=== PATIENT | male | born 1950 | race Caucasian/White ===

== ENCOUNTER → 2016-10-31 | Outpatient (REF) | payer OTHER ==
[~2016-10-31] MED LIST: ACET1TAB17 PO; ALB2.5NEB INH; ATOR1TAB21 PO; Amoxicillin/Clavulanate Potas PO; BACT800T5 PO; BIMA01SOL OU; CORE12.5 PO; CORE3.12 PO; DARB10SYRN SC; DOCU10CA PO; FERR1TAB8 PO; FERR325T3 PO; FIRS1SOL3 PO; IPRA2IN INH; LISI10TA4 PO; MULTTAB50 PO; NORV5TAB PO; PROBCAP4 PO; PROT1TAB2 PO; SIME80TA PO; TYLE325T5 PO; TYLE650T35 PO; VANC1CAP7 PO
== END ==
LOC: M SMT 12:59
PROVIDERS: ATTEND Nurse Practitioner Women's Health
DX: R31.29 Other microscopic hematuria (principal)

== ENCOUNTER → 2017-01-22 | Outpatient (CLI) | payer OTHER ==
--- NOTE | 2017-01-22 11:16 | REP ---
Chest two views HISTORY: Preop Comparison: 01/31/2014 Linear density is present in the left lower lobe consistent with scar. The right lung is clear. The heart is normal in size. The pulmonary vasculature is normal in appearance. The bony structure is intact. IMPRESSION: No acute disease. Signed by Modesto dOom MD 01/22/2017 11:07 A
[2017-01-22 14:19] LABS: MEAN CORPUSCULAR HEMOGLOBIN 28.4 pg (27.0-33.0); MEAN CORPUSCULAR HGB CONC 33.3 g/dl (32.0-36.5); MEAN CORPUSCULAR VOLUME 85.5 fl (80.0-96.0); RED CELL DISTRIBUTION WIDTH 12.9 % (11.5-14.5); WHITE BLOOD COUNT 7.7 10^3/uL (4.0-10.0)
[2017-01-22 14:29] LABS: INR 1.03
[2017-01-22 15:01] LABS: ANION GAP 2 MEQ/L (8-16); BLOOD UREA NITROGEN 19 MG/DL (7-18); CALCIUM LEVEL 9.2 MG/DL (8.8-10.2); CARBON DIOXIDE LEVEL 33 MEQ/L (21-32); CHLORIDE LEVEL 106 MEQ/L (98-107); CREATININE FOR GFR 0.95 MG/DL (0.70-1.30); GLOMERULAR FILTRATION RATE > 60.0 (>49); GLUCOSE, FASTING 82 MG/DL (80-110); POTASSIUM SERUM 5.1 MEQ/L (3.5-5.1); SODIUM LEVEL 141 MEQ/L (136-145)
== END ==
LOC: M WUC 10:17
PROVIDERS: ATTEND Nurse Practitioner Women's Health
DX: Z01.818 Encounter for other preprocedural examination (principal); N47.1 Phimosis

== ENCOUNTER 2020-08-10 19:25 | Emergency (ER) | payer MEDICARE, OTHER ==
[~2020-08-10] VITALS: Ht 170.2 cm; Wt 85.4 kg
[~2020-08-10 19:25] MED LIST changes: -ACET1TAB17 PO; +ACET1TAB55 PO; +ACET650T61 PO; -FIRS1SOL3 PO; +FIRS50SO PO; +LISI10TA22 PO; -LISI10TA4 PO; +SIME80CH5 PO; -SIME80TA PO; -TYLE650T35 PO
[2020-08-10] MEDS ORDERED: CARV6.25 PO (19:37)
[2020-08-10 20:27] LABS: BASO % 0.1 % (0.0-1.0); EOS # 0.4 10^3/uL (0.0-0.5); EOS % 5.9 % (0.0-3.0); HEMATOCRIT 50.1 % (42.0-52.0); HEMOGLOBIN 17.1 g/dl (13.5-17.5); LYMPH # 1.7 10^3/uL (1.5-5.0); LYMPH % 23.3 % (24.0-44.0); MEAN CORPUSCULAR HEMOGLOBIN 30.4 pg (27.0-33.0); MEAN CORPUSCULAR HGB CONC 34.1 g/dl (32.0-36.5); MEAN CORPUSCULAR VOLUME 89.1 fl (80.0-96.0); MONO # 0.4 10^3/uL (0.0-0.8); MONO % 5.9 % (2.0-8.0); NEUTROPHILS # 4.6 10^3/uL (1.5-8.5); NEUTROPHILS % 64.7 % (36.0-66.0); PLATELET COUNT, AUTOMATED 110 10^3/uL (150-450); RED BLOOD COUNT 5.62 10^6/uL (4.30-6.10); WHITE BLOOD COUNT 7.1 10^3/uL (4.0-10.0)
[2020-08-10 20:48] LABS: ALBUMIN 4.3 GM/DL (3.2-5.2); ALT/SGPT 45 U/L (12-78); BILIRUBIN,DIRECT 0.5 MG/DL (0.0-0.2); BILIRUBIN,TOTAL 3.5 MG/DL (0.2-1.0); CK-MB VALUE MASS < 1.0 NG/ML (<3.6); CPK CREATINE PHOSPHOKINASE 66 U/L (39-308); LIPASE 7238 U/L (73-393); MB/CK RELATIVE INDEX 1.52 (< OR =4); TOTAL PROTEIN 7.8 GM/DL (6.4-8.2); TROPONIN I < 0.02 NG/ML (< 0.10)
[2020-08-10] MEDS ORDERED: NS 1,000 ML IV ONE (21:05)
[2020-08-10] MEDS ORDERED: ISOVUE-370 76% 100ML VIAL As Ordered ONE (21:10)
--- NOTE | 2020-08-10 21:54 | REPVR ---
PROCEDURE INFORMATION: Exam: CT Abdomen And Pelvis With Contrast Exam date and time: 08/10/2020 9:24 PM Age: 69 years old Clinical indication: Abdominal pain; Localized; Right upper quadrant (ruq); Additional info: Epigastric, ruq pain, pancreatitis TECHNIQUE: Imaging protocol: Computed tomography of the abdomen and pelvis with contrast. Radiation optimization: All CT scans at this facility use at least one of these dose optimization techniques: automated exposure control; mA and/or kV adjustment per patient size (includes targeted exams where dose is matched to clinical indication); or iterative reconstruction. Contrast material: ISOVUE 370; Contrast volume: 100 ml; Contrast route: INTRAVENOUS (IV); COMPARISON: CT ABD PELVIS W/O CONTRAST 02/09/2014 10:55 AM FINDINGS: Lungs: Bibasilar atelectasis/scarring. Liver: Stable appearance of cyst in the hepatic dome measuring up to 2.5 cm. There is a diffuse decrease in hepatic parenchymal density, consistent with steatosis. Gallbladder and bile ducts: Cholelithiasis with mild thickening of the gallbladder wall. No pericholecystic fluid demonstrated. Clinical correlation to exclude cholecystitis suggested. Pancreas: Mild peripancreatic stranding and fluid extending into the anterior pararenal spaces, left greater than right. Findings consistent with mild pancreatitis. No pseudocyst or phlegmon demonstrated. Spleen: Normal. No splenomegaly. Adrenal glands: Normal. No mass. Kidneys and ureters: Simple exophytic cyst left kidney measures 2.3 cm. No follow-up suggested. Stomach and bowel: Inflammatory changes in the duodenal sweep may be reactive. Moderate diverticulosis is present in the distal colon. No diverticulitis. Appendix: No evidence of appendicitis. Intraperitoneal space: Unremarkable. No free air. No significant fluid collection. Vasculature: The aortoiliac vessels demonstrate mild atherosclerotic calcification. 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 Lymph nodes: Unremarkable. No enlarged lymph nodes. Urinary bladder: Unremarkable as visualized. Reproductive: The prostate gland demonstrates mild hyperplasia. Bones/joints: Mild central spinal stenosis L3-L4 and moderate central spinal stenosis L4-L5. Disc space narrowing L5-S1. Soft tissues: Right inguinal hernia without incarceration. IMPRESSION: 1. Stable appearance of cyst in the hepatic dome measuring up to 2.5 cm. 2. There is a diffuse decrease in hepatic parenchymal density, consistent with steatosis. 3. Cholelithiasis with mild thickening of the gallbladder wall. No pericholecystic fluid demonstrated. Clinical correlation to exclude cholecystitis suggested. 4. Mild peripancreatic stranding and fluid extending into the anterior pararenal spaces, left greater than right. Findings consistent with mild pancreatitis. No pseudocyst or phlegmon demonstrated. 5. Inflammatory changes in the duodenal sweep may be reactive. 6. Mild prostatic hyperplasia. 7. Moderate diverticulosis is present in the distal colon. No diverticulitis. COMMENTS: Consistent with the [employer] [place]'s Incidental Findings Committee white paper (J Am Barry Radiol 2018): Any incidental renal lesion less than 1 cm or classified as too small to characterize, or any incidental cystic renal lesion characterized as simple-appearing, is likely benign. No follow-up imaging is recommended for these lesions per consensus recommendations based on imaging criteria. Electronically signed by: Flako Dolan On 08/10/2020 21:54:09 PM
--- NOTE | 2020-08-10 21:57 | REPVR ---
PROCEDURE INFORMATION: Exam: US Abdomen, Limited; Right Upper Quadrant Exam date and time: 08/10/2020 9:48 PM Age: 69 years old Clinical indication: Abdominal tenderness; Additional info: Ruq pain, pancreatitis TECHNIQUE: Imaging protocol: US abdomen. Real time ultrasound with image documentation. Limited exam focused on the right upper quadrant. COMPARISON: CT ABD/PEL W/IV CONTRAST ONLY 08/10/2020 9:18 PM FINDINGS: Liver: Multiple simple hepatic cysts demonstrated in the right lobe. Largest target lesions measure 1.7 x 1.7 x 1.3 cm laterally and 3 x 3.1 x 2.2 cm medially. Gallbladder: There are gallstones present. No evidence of cholecystitis demonstrated. Negative sonographic Hernandez sign. Common bile duct: The common bile duct measures 3.7 mm. No mass or choledocholithiasis. Pancreas: Pancreas obscured by overlying bowel gas. Right kidney: Right kidney measures 11.3 x 5 x 5.2 cm. IMPRESSION: 1. There are gallstones present. No evidence of cholecystitis demonstrated. Negative sonographic Hernandez sign. 2. Hepatic simple cysts as described above. Electronically signed by: Flako Dolan On 08/10/2020 21:56:43 PM
[2020-08-10 23:00] VITALS: BP 156/87
--- NOTE | 2020-08-11 09:55 | ECGEPIP ---
[facility] - ED Test Date: 2020-08-10 Pat Name: SREEKANTH GORMAN Department: Room: - Gender: Male Weaver Hand: CORBY : 1950 Requested By: NEREYDA James Order Number: [id number] Reading MD: Yamilet Vargas Measurements Intervals [place] Rate: 65 P: 44 MI: 132 QRS: -39 QRSD: 84 T: 43 QT: 394 QTc: 409 Interpretive Statements Normal sinus rhythm Left axis deviation No prior Electronically Signed on 08-11-2020 9:55:02 EDT by Yamilet Vargas
== END 2020-08-10 23:30 | disposition home or self-care (01) ==
LOC: M ED 19:25
DX: K85.10 Biliary acute pancreatitis without necrosis or infection (principal); I10 Essential (primary) hypertension; N17.9 Acute kidney failure, unspecified; E78.5 Hyperlipidemia, unspecified; Z79.899 Other long term (current) drug therapy
CPT/HCPCS: 74177; 76705; 80047; 80076; 81001; 82550; 82553; 83690; 84484; 85025; 93005; 93041; 96360; 99284; Q9967

== ENCOUNTER 2020-08-15 08:21 | Inpatient (IN) | payer MEDICARE, OTHER ==
[~2020-08-15] VITALS: Ht 165.1 cm; Wt 81.9 kg
[~2020-08-15 08:21] MED LIST changes: +CARV6.25 PO
[2020-08-15] MEDS ORDERED: NS 1,000 ML IV SCH (09:30)
[2020-08-15] MEDS ORDERED: MORPHINE 2 MG/ML 1ML VIAL (J2270) IV PRN ×2 (09:30→12:20)
[2020-08-15] MEDS ORDERED: ONDANSETRON 4MG/2ML VIAL IV PRN ×2 (09:30→12:20)
[2020-08-15 09:55] LABS: BASO % 0.4 % (0.0-1.0); EOS # 0.1 10^3/uL (0.0-0.5); EOS % 0.9 % (0.0-3.0); HEMATOCRIT 53.7 % (42.0-52.0); HEMOGLOBIN 18.5 g/dl (13.5-17.5); LYMPH # 1.5 10^3/uL (1.5-5.0); LYMPH % 13.2 % (24.0-44.0); MEAN CORPUSCULAR HGB CONC 34.5 g/dl (32.0-36.5); MEAN CORPUSCULAR VOLUME 87.2 fl (80.0-96.0); MONO # 0.7 10^3/uL (0.0-0.8); MONO % 6.7 % (2.0-8.0); NEUTROPHILS # 8.7 10^3/uL (1.5-8.5); NEUTROPHILS % 78.1 % (36.0-66.0); PLATELET COUNT, AUTOMATED 115 10^3/uL (150-450); RED BLOOD COUNT 6.16 10^6/uL (4.30-6.10); WHITE BLOOD COUNT 11.1 10^3/uL (4.0-10.0)
[2020-08-15 10:03] LABS: ALBUMIN 4.3 GM/DL (3.2-5.2); ALT/SGPT 35 U/L (12-78); BILIRUBIN,TOTAL 4.1 MG/DL (0.2-1.0); BLOOD UREA NITROGEN 18 MG/DL (7-18); CALCIUM LEVEL 9.4 MG/DL (8.8-10.2); CARBON DIOXIDE LEVEL 27 MEQ/L (21-32); CHLORIDE LEVEL 108 MEQ/L (98-107); CREATININE FOR GFR 1.01 MG/DL (0.70-1.30); GLOMERULAR FILTRATION RATE > 60.0 (>42); GLUCOSE, FASTING 111 MG/DL (70-100); LIPASE 162 U/L (73-393); POTASSIUM SERUM 3.7 MEQ/L (3.5-5.1); SODIUM LEVEL 142 MEQ/L (136-145)
--- NOTE | 2020-08-15 10:23 | REP ---
INDICATION: ABD PAIN. COMPARISON: Comparison right upper quadrant sonography [address] study same date, 10 August 2020.. TECHNIQUE: Right upper quadrant sonography. FINDINGS: Scanning through the right upper quadrant the abdomen demonstrates multiple gallstones including large stones measuring up to 2.1 cm in diameter. No pericholecystic fluid is seen. No free ascites is observed. Common bile duct is normal measuring 0.6 cm in greatest diameter. There is are right lobe hepatic cyst measuring 2.5 and cm in diameter each. These correspond with CT findings and recent sonography and are unchanged. Pancreas is a largely obscured by abdominal gas. No intrapancreatic fluid collection or mass is seen. No other focal liver lesion is seen. No intrahepatic ductal dilation is observed. There is no evidence of right renal abnormality. Right kidney measures 10.8 x 5.1 x 5.5 cm. IMPRESSION: Cholelithiasis. Findings unchanged from comparison study August 10, 2020. Two right hepatic cysts.. <Electronically signed by Bernabe Will > 08/15/20 1022
[2020-08-15] MEDS ORDERED: D31000TA2 PO (10:44)
[2020-08-15] MEDS ORDERED: THERTAB21 PO (10:44)
[2020-08-15] MEDS ORDERED: CARVedilol 6.25 MG TAB PO ONE (11:00)
[2020-08-15 11:05] LABS: RSV AMPLIFICATION NEGATIVE (NEGATIVE)
[2020-08-15] MEDS ORDERED: ISOVUE-370 76% 100ML VIAL As Ordered ONE (11:12)
--- NOTE | 2020-08-15 11:48 | REP ---
INDICATION: abd pain COMPARISON: 08/10/2020. TECHNIQUE: CT Scan of the abdomen and pelvis was performed with intravenous administration of 100 cc of Isovue 370, without oral contrast. Sagittal and coronal reconstruction images are performed. FINDINGS: Lung bases: There are mild bibasilar fibro atelectatic changes. Liver: There are few cysts again seen at the dome of the liver. Gallbladder: Gallstones are seen in the gallbladder. Spleen: Normal. Adrenals: Normal. Pancreas: There is ill-defined low density in the superior aspect of the pancreatic head with adjacent ill-defined inflammatory density within the surrounding fat consistent with pancreatitis. The edema extends around the proximal duodenum and distal antrum of the stomach. Kidneys: There is an exophytic 2.3 cm cyst of the lower pole the left kidney. There is no hydronephrosis bilaterally. Small and large bowel: There is extensive sigmoid and left colonic diverticulosis without evidence of acute diverticulitis. Free fluid: None. Abdominal aorta: No aneurysm or dissection. Adenopathy: None. Appendix: Not inflamed. Osseous structures: There are degenerative changes of the spine without compression deformity.. Pelvis: No mass. There are very small inguinal hernias bilaterally containing noninflamed fat. IMPRESSION: Findings consistent with pancreatitis involving the head of the pancreas, with surrounding edema and inflammatory change. No free fluid, fluid collection or pseudocyst. Multiple gallstones are seen in the gallbladder without definite gallbladder wall thickening. No biliary dilatation. <Electronically signed by Darci Pak > 08/15/20 1207
[2020-08-15] MEDS ORDERED: NORCO, ANEXSIA 5/325MG TABLET (HYDROcodone/ACETAMINOPHEN) PO PRN ×2 (13:50)
[2020-08-15] MEDS: LR 1,000 ML IV SCH ×2 (13:50→17:15)
[2020-08-15] MEDS: PANTOPRAZOLE 40MG VIAL (C9113 PER 1) IV SCH (13:50)
--- NOTE | 2020-08-15 14:19 | HPEPDOC ---
General Date of Admission August 15, 2020 at 12:46 Date of Service: August 15, 2020 Chief Complaint The patient is a 69-year-old male admitted with a reason for visit of Acute Pancreatitis. Source: Patient, RN/MD History of Present Illness 69-year-old male with a history of hypertension and hyperlipidemia and occasional alcohol use is presented initially to emergency room on 08/10 for periumbilical abdominal pain which started after breakfast. At that time he was diagnosed with themRamón Question pancreatitis and was discharged home with pain medications to follow up with Dr. Lopez however, he comes back today as he has been unable to tolerate any solid food. He says he has been able to drink only small amounts of liquids only, as soon as he would drink liquids he would start having periumbilical pain which would be as high as 8 / 10 in intensity, crampy, sharp in nature, going to the back and towards his shoulder. He also complains of nausea but no vomiting. He has not had any bowel movement since the . In the ED CT scan showed acute pancreatitis, labs were suggestive of dehydration, and telemetry. An EKG shows some atrial fibrillation which is new with a rate initially 120s to 130s, but then after some hydration, it settled down to about 100 110. . He is admitted for acute pancreatitis, dehydration and A. 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 paternal grandmother had DM Social History * Smoker: non-smoker Alcohol: occationally (2 whiskeys on friday adn saturdays) Drugs: denies A-FIB/CHADSVASC A-FIB History Current/History of A-Fib/PAF?: No Review of Systems Constitutional: Denies: Chills, Fever, Night Sweats Eyes: Denies: Pain, Vision change ENT: Denies: Head Aches, Ear Pain, Dysphagia Skin: Denies: Rash, Lesions, Breakdown Pulmonary: Denies: Dyspnea, Cough Cardiovascular: Denies: Chest Pain, Palpitations, Orthopnea, Paroxysmal Noc. Dyspnea, Lt Headedness Gastrointestinal: Reports: Nausea, Abdominal Pain, Constipation Genitourinary: Denies: Dysuria, Frequency, Incontinence, Retention Hematologic: Denies: Bruising, Bleeding Excessively Physical Examination General Exam: Positive: Alert, Cooperative, No Acute Distress Eye Exam: Positive: PERRLA, Conjunctiva & lids normal, EOMI; Negative: Sclera icteric ENT Exam: Positive: Atraumatic, Mucous membr. moist/pink, Pharynx Normal Neck Exam: Positive: Supple; Negative: JVD, thyromegaly Chest Exam: Positive: Clear to auscultation, Normal air movement Heart Exam: Positive: Tachycardic, Irregular Rhythm, Normal S1, Normal S2; Negative: Murmurs, Rubs Telemetry: Positive: Atrial fibrillation Abdomen Exam: Positive: BS Hyperactive, Soft, Tenderness (periumbilical area), Other (N guarding or regidity or rebound); Negative: Hepatospenomegaly Extremity Exam: Negative: Clubbing, Cyanosis, Edema Skin Exam: Positive: Nl turgor and temperature; Negative: Breakdown, Lesion Neuro Exam: Positive: Normal Speech, Strength at 5/5 X4 ext, Normal Tone Psych Exam: Positive: Memory Intact, Oriented x 3 Vital Signs Vital Signs Date Time Temp Pulse Resp B/P (MAP) Pulse Ox O2 Delivery O2 Flow Rate FiO2 08/15/20 10:26 17 98 08/15/20 10:16 Room Air 08/15/20 09:15 127 122/97 (105) 08/15/20 08:30 95.5 Laboratory Data Labs 24H Laboratory Tests 2 08/15/20 09:14: Immature Granulocyte % (Auto) 0.7, Neutrophils (%) (Auto) 78.1H, Lymphocytes (%) (Auto) 13.2L, Monocytes (%) (Auto) 6.7, Eosinophils (%) (Auto) 0.9, Basophils (%) (Auto) 0.4, Neutrophils # (Auto) 8.7H, Lymphocytes # (Auto) 1.5, Monocytes # (Auto) 0.7, Eosinophils # (Auto) 0.1, Basophils # (Auto) 0.0, Nucleated Red Blood Cells % (auto) 0.0 08/15/20 09:16: POC Troponin I (Misc) 0.02 08/15/20 09:38: Anion Gap 7L, Glomerular Filtration Rate > 60.0, Calcium Level 9.4, Total Bilirubin 4.1H, Aspartate Amino Transf (AST/SGOT) 26, Alanine Aminotransferase (ALT/SGPT) 35, Alkaline Phosphatase 71, Total Protein 8.0, Albumin 4.3, Albumin/Globulin Ratio 1.2, Lipase 162 08/15/20 10:10: Coronavirus (COVID-19)(PCR) NEGATIVE, Influenza Type A (RT-PCR) NEGATIVE, Influenza Type B (RT-PCR) NEGATIVE, Respiratory Syncytial Virus (PCR) NEGATIVE CBC/BMP Laboratory Tests 08/15/20 09:14 08/15/20 09:38 Assessment/Plan 69-year-old male with a history of hypertension and hyperlipidemia and occa sional alcohol use is presented initially to emergency room on 08/10 for periumbilical abdominal pain which started after breakfast. At that time he was diagnosed with them. Question pancreatitis and was discharged home with pain medications to follow up with Dr. Lopez however, he comes back today as he has been unable to tolerate any solid food. He says he has been able to drink only small amounts of liquids only, as soon as he would drink liquids he would start having periumbilical pain which would be as high as 8 / 10 in intensity, crampy, sharp in nature, going to the back and towards his shoulder. He also complains of nausea but no vomiting. He has not had any bowel movement since the . In the ED CT scan showed acute pancreatitis, labs were suggestive of dehydration, and telemetry. An EKG shows some atrial fibrillation which is new with a rate initially 120s to 130s, but then after some hydration, it settled down to about 100 110. . He is admitted for acute pancreatitis, dehydration and A. fib with RVR Acute pancreatitis Though he has some alcohol intake history, but not significant amount and he does have lots of gallstones in the gallbladder, so this is likely gallstone related acute pancreatitis IV fluids, Zofran and pain control with the [place] and morphine Clear liquids. Will advance to full liquids if tolerated Dehydration Suggested by high H&H Continue with IV fluids A. fib with RVR No history of A. fib before, likely precipitated by the pain and acute pa ncreatitis Continue Coreg and increase dose as needed Will discuss about starting anticoagulation on discharge Hypertension Continue Coreg Hyperlipidemia Hold statin for now Plan / VTE VTE Prophylaxis Ordered?: Yes CAROL VO MD August 15, 2020 14:19
[2020-08-15 17:08] VITALS: BP 147/88
--- NOTE | 2020-08-15 17:52 | ECGEPIP ---
[facility] - ED Test Date: 2020-08-15 Pat Name: SREEKANTH GORMAN Department: Room: - Gender: Male Dope Mixer: : 1950 Requested By: Yamilet Vargas Order Number: [id number] Reading MD: Yamilet Vargas Measurements Intervals [place] Rate: 166 P: [place]: QRS: -39 QRSD: 78 T: -84 QT: 296 QTc: 491 Interpretive Statements Atrial flutter Left axis deviation Minimal voltage criteria for LVH, may be normal variant ( Alirio product ) Marked ST abnormality, possible anterolateral subendocardial injury 08/10/20 sinus rhythm Electronically Signed on 08-15-2020 17:51:51 EDT by Yamilet Vargas
[2020-08-15 20:35] VITALS: BP 164/89
[2020-08-15] MEDS: CARVedilol 6.25 MG TAB PO SCH (20:44)
[2020-08-16] MEDS: LR 1,000 ML IV SCH ×4 (00:14→15:31)
[2020-08-16 06:00] VITALS: BP 158/88
[2020-08-16 06:49] LABS: BASO % 0.4 % (0.0-1.0); EOS # 0.2 10^3/uL (0.0-0.5); EOS % 2.7 % (0.0-3.0); HEMATOCRIT 44.5 % (42.0-52.0); LYMPH # 1.5 10^3/uL (1.5-5.0); LYMPH % 17.7 % (24.0-44.0); MEAN CORPUSCULAR HEMOGLOBIN 30.6 pg (27.0-33.0); MEAN CORPUSCULAR HGB CONC 34.6 g/dl (32.0-36.5); MEAN CORPUSCULAR VOLUME 88.5 fl (80.0-96.0); MONO # 0.5 10^3/uL (0.0-0.8); MONO % 6.6 % (2.0-8.0); NEUTROPHILS # 5.9 10^3/uL (1.5-8.5); RED BLOOD COUNT 5.03 10^6/uL (4.30-6.10); WHITE BLOOD COUNT 8.2 10^3/uL (4.0-10.0)
[2020-08-16 06:53] LABS: HEMOGLOBIN 15.4 g/dl (13.5-17.5); PLATELET COUNT, AUTOMATED 96 10^3/uL (150-450)
[2020-08-16 07:00] LABS: BLOOD UREA NITROGEN 15 MG/DL (7-18); CALCIUM LEVEL 8.7 MG/DL (8.8-10.2); CARBON DIOXIDE LEVEL 27 MEQ/L (21-32); CHLORIDE LEVEL 110 MEQ/L (98-107); GLOMERULAR FILTRATION RATE > 60.0 (>42); GLUCOSE, FASTING 93 MG/DL (70-100); POTASSIUM SERUM 3.8 MEQ/L (3.5-5.1); SODIUM LEVEL 141 MEQ/L (136-145)
[2020-08-16 08:21] LABS: ALBUMIN 3.1 GM/DL (3.2-5.2); ALT/SGPT 25 U/L (12-78); BILIRUBIN,DIRECT 0.5 MG/DL (0.0-0.2); BILIRUBIN,TOTAL 3.7 MG/DL (0.2-1.0); TOTAL PROTEIN 6.1 GM/DL (6.4-8.2)
[2020-08-16] MEDS ORDERED: ENOXAPARIN 40MG/0.4ML SYRINGE (J1650 PER 10MG) SC SCH (09:00)
[2020-08-16 09:53] VITALS: BP 151/85
[2020-08-16] MEDS: CARVedilol 6.25 MG TAB PO SCH (09:53)
[2020-08-16] MEDS: PANTOPRAZOLE 40MG VIAL (C9113 PER 1) IV SCH (13:39)
[2020-08-16 14:00] VITALS: BP 153/86
[2020-08-16] MEDS ORDERED: HYDR-3715 PO (16:12)
--- NOTE | 2020-08-16 17:48 | DS.PDOC ---
Discharge Summary General Date of Admission August 15, 2020 at 12:46 Date of Discharge 08/16/20 Discharge Summary PROCEDURES PERFORMED DURING STAY: [None]. DISCHARGE DIAGNOSES: Acute Gall stone pancreatitis. COMPLICATIONS/CHIEF COMPLAINT: Acute Pancreatitis. HOSPITAL COURSE: 69-year-old male with a history of hypertension and hyperlipidemia and occasional alcohol use is presented initially to emergency room on 08/10 for periumbilical abdominal pain which started after breakfast. At that time he was diagnosed with them. Question pancreatitis and was discharged home with pain medications to follow up with Dr. Lopez however, he comes back today as he has been unable to tolerate any solid food. He says he has been able to drink only small amounts of liquids only, as soon as he would drink liquids he would start having periumbilical pain which would be as high as 8 / 10 in intensity, crampy, sharp in nature, going to the back and towards his shoulder. He also complains of nausea but no vomiting. He has not had any bowel movement since the . In the ED CT scan showed acute pancreatitis, labs were suggestive of dehydration, and telemetry. An EKG shows some atrial fibrillation which is new with a rate initially 120s to 130s, but then after some hydration, it settled down to about 100 110. He is admitted for acute pancreatitis, dehydration and A. fib with RVR. Acute pancreatitis Though he has some alcohol intake history, but not significant amount and he does have lots of gallstones in the gallbladder, so this is likely gallstone related acute pancreatitis tolerated soft diet, low fat and low cholesterol. did not need any pain medication in 24 hours. patient to be discharged home to follow up with Dr Lopez Dehydration Suggested by high H&H now hydrated A. fib/ a flutter with RVR No history of A. fib before, likely precipitated by the pain and acute pancreatitis spontaneously corrected to sinus in about 4 hours. Continue Coreg . His CHADVASC2 score is 2.0 Patient may need early surgery so will hold off on initiating AC at present will defer to PMD for decision about anticoagulation Will also need an echo as an outpatient. Hypertension Continue Coreg Hyperlipidemia statin DISCHARGE MEDICATIONS: Please see below. ALLERGIES: Please see below. PHYSICAL EXAMINATION ON DISCHARGE: VITAL SIGNS: Please see below. General Exam: Positive: Alert, Cooperative, No Acute Distress Eye Exam: Positive: PERRLA, Conjunctiva & lids normal, EOMI; Negative: Sclera icteric ENT Exam: Positive: Atraumatic, Mucous membr. moist/pink, Pharynx Normal Neck Exam: Positive: Supple; Negative: JVD, thyromegaly Chest Exam: Positive: Clear to auscultation, Normal air movement Heart Exam: Positive: Normal rate, regular rhythm, Normal S1, Normal S2; Negative: Murmurs, Rubs Abdomen Exam: Positive: BS normal, Soft, Nontender Negative: Hepatosplenomegaly Extremity Exam: Negative: Clubbing, Cyanosis, Edema Skin Exam: Positive: Nl turgor and temperature; Negative: Breakdown, Lesion Neuro Exam: Positive: Normal Speech, Strength at 5/5 X4 ext, Normal Tone Psych Exam: Positive: Memory Intact, Oriented x 3 LABORATORY DATA: Please see below. ACTIVITY: [As tolerated]. DIET: Low fat and low cholesterol soft diet. DISPOSITION: 01 Home, Self-Care. DISCHARGE INSTRUCTIONS: Follow up with Dr Lopez on 08/17/20 Follow up with PMD in 2 weeks DISCHARGE CONDITION: [Stable]. TIME SPENT ON DISCHARGE: 35 minutes. Vital Signs/I&Os Vital Signs Date Time Temp Pulse Resp B/P (MAP) Pulse Ox O2 Delivery O2 Flow Rate FiO2 08/16/20 14:00 97.8 64 18 153/86 (108) 96 Room Air I&O- Last 24 Hours up to 6 AM 08/16/20 07:00 Intake Total 3270 ml Output Total 575 ml Balance 2695 ml Laboratory Data Labs 24H Laboratory Tests 2 08/16/20 06:17: Immature Granulocyte % (Auto) 0.6, Neutrophils (%) (Auto) 72.0H, Lymphocytes (%) (Auto) 17.7L, Monocytes (%) (Auto) 6.6, Eosinophils (%) (Auto) 2.7, Basophils (%) (Auto) 0.4, Neutrophils # (Auto) 5.9, Lymphocytes # (Auto) 1.5, Monocytes # (Auto) 0.5, Eosinophils # (Auto) 0.2, Basophils # (Auto) 0.0, Nucleated Red Blood Cells % (auto) 0.0, Immature Platelet Fraction 5.5, Anion Gap 4L, Glomer ular Filtration Rate > 60.0, Calcium Level 8.7L, Total Bilirubin 3.7H, Direct Bilirubin 0.5H, Aspartate Amino Transf (AST/SGOT) 19, Alanine Aminotransferase (ALT/SGPT) 25, Alkaline Phosphatase 48, Total Protein 6.1#L, Albumin 3.1#L, Albumin/Globulin Ratio 1.0 08/16/20 12:06: Lab Scanned Report Miscellaneous Lab CBC/BMP Laboratory Tests 08/16/20 06:17 Discharge Medications Scheduled Atorvastatin Calcium (Atorvastatin Calcium) 20 Mg Tab, 20 MG PO DAILY, (Reported) Carvedilol (Carvedilol) 6.25 Mg Tablet, 6.25 MG PO BID, (Reported) Cholecalciferol (Vitamin D3) (Vitamin D3) 1,000 Unit Tablet, 1,000 UNITS PO Q2D, (Reported) Multivit,Calc,Mins/Iron/Folic (Thera-M Tablet) 1 Each Tablet, 1 TAB PO Q2D, (Reported) Scheduled PRN Hydrocodone/Acetaminophen (Hydrocodone-Acetamin 5-325 mg) 1 Each Tablet, 1 TAB PO Q8HP PRN for PAIN Allergies Coded Allergies: No Known Allergies (Unverified , 02/05/17) CAROL VO MD August 16, 2020 17:48
== END 2020-08-16 17:18 | disposition home or self-care (01) | DRG 439 ==
LOC: M ED 08:21 → M ED INP 12:46 → M MSPAV 20:31
PROVIDERS: ADMIT Internal Medicine Nephrology; ATTEND Internal Medicine Nephrology
DX: K85.10 Biliary acute pancreatitis without necrosis or infection (principal); I48.92 Unspecified atrial flutter; I48.91 Unspecified atrial fibrillation; I10 Essential (primary) hypertension; E78.5 Hyperlipidemia, unspecified; E86.0 Dehydration; Z79.899 Other long term (current) drug therapy; Z98.41 Cataract extraction status, right eye; Z98.42 Cataract extraction status, left eye

== ENCOUNTER → 2021-04-04 | Outpatient (CLI) | payer MEDICARE, OTHER ==
[~2021-04-04] MED LIST changes: +D31000TA2 PO; +HYDR-3715 PO; +THERTAB21 PO
== END ==
LOC: M LABSMTC 10:34
PROVIDERS: ATTEND Anesthesiology
DX: Z01.812 Encounter for preprocedural laboratory examination (principal); Z20.822 Contact with and (suspected) exposure to COVID-19

== ENCOUNTER 2021-04-09 10:59 | Day surgery (SDC) | payer MEDICARE, OTHER ==
[~2021-04-09] VITALS: Ht 170.2 cm; Wt 83.0 kg
[~2021-04-09 10:59] MED LIST changes: +CYCLOPENTOLATE 1% OPHTH SOLN 2 ML BTL OS SCH; +FLURBIPROFEN 0.03% OPHTH SOLN 2.5 ML OS SCH; +LIDOCAINE 1% SDV 5ML VIAL As Ordered ONE; +LR 1,000 ML IV SCH; +PHENYLEPHRINE 2.5% OPHTH SOL 2ML OS SCH; +TETRACAINE 0.5% OPHTH SOLN 4ML OS SCH
[2021-04-09] MEDS ORDERED: MIDAZOLAM INJ 2MG/2ML VIAL (J2250 PER 1MG) As Ordered ONE (14:01)
[2021-04-09] MEDS ORDERED: fentaNYL 100 MCG/2 ML INJECTION As Ordered ONE (14:01)
[2021-04-09 14:40] VITALS: BP 160/97
[2021-06-04] MEDS ORDERED: CARV6.25 PO (13:30)
== END 2021-04-09 14:50 | disposition home or self-care (01) ==
LOC: M SDC 10:59
PROVIDERS: ATTEND Ophthalmology
DX: H25.12 Age-related nuclear cataract, left eye (principal); I10 Essential (primary) hypertension; E78.5 Hyperlipidemia, unspecified; Z79.899 Other long term (current) drug therapy
CPT/HCPCS: 66984; J2250; J3010; V2632

== ENCOUNTER 2021-04-27 02:01 | Inpatient (IN) | payer MEDICARE, OTHER ==
[~2021-04-27] VITALS: Ht 167.6 cm; Wt 82.5 kg
[~2021-04-27 02:01] MED LIST changes: -CYCLOPENTOLATE 1% OPHTH SOLN 2 ML BTL OS SCH; -FLURBIPROFEN 0.03% OPHTH SOLN 2.5 ML OS SCH; -LIDOCAINE 1% SDV 5ML VIAL As Ordered ONE; -LR 1,000 ML IV SCH; -PHENYLEPHRINE 2.5% OPHTH SOL 2ML OS SCH; -TETRACAINE 0.5% OPHTH SOLN 4ML OS SCH
[2021-04-27 06:40] LABS: BASO # 0.1 10^3/uL (0.0-0.2); BASO % 0.6 % (0.0-1.0); HEMOGLOBIN 19.9 g/dl (13.5-17.5); LYMPH # 1.3 10^3/uL (1.5-5.0); LYMPH % 5.5 % (24.0-44.0); MEAN CORPUSCULAR HGB CONC 34.4 g/dl (32.0-36.5); MONO # 1.2 10^3/uL (0.0-0.8); MONO % 4.9 % (2.0-8.0); NEUTROPHILS # 20.1 10^3/uL (1.5-8.5); NEUTROPHILS % 86.4 % (36.0-66.0); PLATELET COUNT, AUTOMATED 131 10^3/uL (150-450); RED BLOOD COUNT 6.64 10^6/uL (4.30-6.10); WHITE BLOOD COUNT 23.3 10^3/uL (4.0-10.0)
[2021-04-27 06:41] LABS: HEMATOCRIT 57.8 % (42.0-52.0)
[2021-04-27] MEDS ORDERED: NS 1,000 ML IV ONE (06:45)
[2021-04-27] MEDS ORDERED: MORPHINE 4 MG/ML 1ML VIAL/SYRINGE (J2270) IV ONE (06:55)
[2021-04-27] MEDS ORDERED: PIPERACILLIN/TAZOBACTAM SOD 3.375 GM in D5W MINI-BAG PLUS 50 ML IV ONE (06:55)
[2021-04-27 07:01] LABS: ALBUMIN 4.7 GM/DL (3.2-5.2); BILIRUBIN,DIRECT 0.6 MG/DL (0.0-0.2); BILIRUBIN,TOTAL 4.8 MG/DL (0.2-1.0); CALCIUM LEVEL 9.9 MG/DL (8.8-10.2); CREATININE FOR GFR 2.01 MG/DL (0.70-1.30); POTASSIUM SERUM 3.8 MEQ/L (3.5-5.1); TOTAL PROTEIN 8.5 GM/DL (6.4-8.2)
[2021-04-27] MEDS ORDERED: NS 2,590 ML in IV 1 EA IV ONE (07:05)
[2021-04-27] MEDS ORDERED: MORPHINE 2 MG/ML 1ML VIAL (J2270) IV ONE (08:15)
[2021-04-27] MEDS ORDERED: PREDOPD OS (08:44)
[2021-04-27] MEDS ORDERED: TIMO0.5S29 OS (08:44)
[2021-04-27] MEDS ORDERED: HOME MED LIST COMPLETE! XX SCH (08:45)
[2021-04-27] MEDS ORDERED: MORPHINE 2 MG/ML 1ML VIAL (J2270) IV PRN ×2 (10:45→12:40)
[2021-04-27] MEDS ORDERED: HYDROMORPHONE HCL 0.5 MG/ 0.5 ML SYRINGE (J1170 PER 1) IV PRN (11:10)
[2021-04-27] MEDS ORDERED: CARVedilol 6.25 MG TAB PO SCH ×2 (11:45→21:00)
[2021-04-27] MEDS: ATORVASTATIN 20 MG TAB PO SCH (12:27)
[2021-04-27] MEDS: NS 1,000 ML IV SCH ×2 (12:27→17:59)
[2021-04-27] MEDS: prednisoLONE ACET 1% OPHTH SUSP 5ML OS SCH ×3 (13:00→21:00)
[2021-04-27] MEDS ORDERED: ACETAMINOPHEN TAB 650MG DOSE (2X325MG) PO PRN (15:15)
[2021-04-27] MEDS: PIPERACILLIN/TAZOBACTAM SOD 3.375 GM in D5W MINI-BAG PLUS 50 ML IV SCH ×2 (17:58→20:59)
[2021-04-27] MEDS ORDERED: METOPROLOL 5 MG/5 ML VIAL As Ordered ONE (18:24)
[2021-04-27] MEDS ORDERED: METOPROLOL 5 MG/5 ML VIAL IV STA (18:32)
[2021-04-27 19:06] VITALS: BP 139/84
[2021-04-27] MEDS ORDERED: atenoloL 25 MG TAB PO ONE (19:20)
[2021-04-27] MEDS ORDERED: METOPROLOL 5 MG/5 ML VIAL IV PRN (19:20)
[2021-04-27] MEDS: TIMOLOL MALEATE 0.5% OPHTH SOLN 5 ML OS SCH (21:00)
[2021-04-27] MEDS: HEPARIN SOD (PORCINE) 5000UNITS/ML 1ML VIAL/SYRINGE SC SCH (21:13)
[2021-04-27 21:17] VITALS: BP 114/71
[2021-04-28] VITALS (14 sets, daily range): BP systolic 111–144; BP diastolic 68–75; O2SAT 93–97
[2021-04-28] MEDS: HYDROMORPHONE HCL 0.5 MG/ 0.5 ML SYRINGE (J1170 PER 1) IV PRN ×3 (00:25→16:59)
[2021-04-28] MEDS: NS 1,000 ML IV SCH ×2 (00:27→07:15)
[2021-04-28] MEDS: PIPERACILLIN/TAZOBACTAM SOD 3.375 GM in D5W MINI-BAG PLUS 50 ML IV SCH (03:00)
[2021-04-28] MEDS: HEPARIN SOD (PORCINE) 5000UNITS/ML 1ML VIAL/SYRINGE SC SCH ×3 (05:46→21:33)
[2021-04-28 06:22] LABS: BASO # 0.1 10^3/uL (0.0-0.2); BASO % 0.3 % (0.0-1.0); EOS # 0.1 10^3/uL (0.0-0.5); EOS % 0.2 % (0.0-3.0); HEMATOCRIT 51.4 % (42.0-52.0); LYMPH # 1.2 10^3/uL (1.5-5.0); MEAN CORPUSCULAR HEMOGLOBIN 30.2 pg (27.0-33.0); MEAN CORPUSCULAR HGB CONC 33.5 g/dl (32.0-36.5); MEAN CORPUSCULAR VOLUME 90.2 fl (80.0-96.0); MONO % 7.1 % (2.0-8.0); NEUTROPHILS % 86.4 % (36.0-66.0); WHITE BLOOD COUNT 24.3 10^3/uL (4.0-10.0)
[2021-04-28 06:52] LABS: ALBUMIN 3.1 GM/DL (3.2-5.2); ALT/SGPT 39 U/L (12-78); BILIRUBIN,TOTAL 5.6 MG/DL (0.2-1.0); BLOOD UREA NITROGEN 42 MG/DL (7-18); CALCIUM LEVEL 8.2 MG/DL (8.8-10.2); CARBON DIOXIDE LEVEL 22 MEQ/L (21-32); CHLORIDE LEVEL 119 MEQ/L (98-107); CREATININE FOR GFR 1.25 MG/DL (0.70-1.30); GLOMERULAR FILTRATION RATE > 60.0 (>42); GLUCOSE, FASTING 133 MG/DL (70-100); MAGNESIUM LEVEL 2.1 MG/DL (1.8-2.4); PHOSPHORUS LEVEL 3.3 MG/DL (2.5-4.9); POTASSIUM SERUM 4.2 MEQ/L (3.5-5.1); SODIUM LEVEL 150 MEQ/L (136-145); TOTAL PROTEIN 6.5 GM/DL (6.4-8.2)
[2021-04-28 07:16] LABS: HEMOGLOBIN 17.2 g/dl (13.5-17.5); MONO # 1.7 10^3/uL (0.0-0.8); PLATELET COUNT, AUTOMATED 99 10^3/uL (150-450)
[2021-04-28] MEDS: prednisoLONE ACET 1% OPHTH SUSP 5ML OS SCH ×4 (09:00→20:50)
[2021-04-28] MEDS: TIMOLOL MALEATE 0.5% OPHTH SOLN 5 ML OS SCH ×2 (09:00→20:50)
[2021-04-28] MEDS: ATORVASTATIN 20 MG TAB PO SCH (09:17)
[2021-04-28] MEDS: atenoloL 25 MG TAB PO SCH (09:17)
[2021-04-28] MEDS: CIPROFLOXACIN 400 MG in IV 1 EA IV SCH ×2 (09:17→20:50)
[2021-04-28] MEDS ORDERED: MORPHINE 2 MG/ML 1ML VIAL (J2270) IV PRN (10:00)
[2021-04-28] MEDS: metroNIDAZOLE 500 MG in IV 1 EA IV SCH ×2 (10:50→17:05)
[2021-04-28 17:12] LABS: ALBUMIN 2.8 GM/DL (3.2-5.2); ALT/SGPT 34 U/L (12-78); BILIRUBIN,TOTAL 4.2 MG/DL (0.2-1.0); BLOOD UREA NITROGEN 40 MG/DL (7-18); CALCIUM LEVEL 8.1 MG/DL (8.8-10.2); CARBON DIOXIDE LEVEL 21 MEQ/L (21-32); CHLORIDE LEVEL 119 MEQ/L (98-107); CREATININE FOR GFR 1.13 MG/DL (0.70-1.30); GLOMERULAR FILTRATION RATE > 60.0 (>42); GLUCOSE, FASTING 118 MG/DL (70-100); SODIUM LEVEL 149 MEQ/L (136-145); TOTAL PROTEIN 6.2 GM/DL (6.4-8.2)
[2021-04-28] MEDS: D5W 1,000 ML IV SCH (17:28)
[2021-04-29] VITALS: BP 152/74
[2021-04-29] MEDS: metroNIDAZOLE 500 MG in IV 1 EA IV SCH ×2 (03:00→10:00)
[2021-04-29] MEDS: D5W 1,000 ML IV SCH (03:15)
[2021-04-29 04:00] VITALS: BP 139/76
[2021-04-29 06:21] LABS: BASO # 0.1 10^3/uL (0.0-0.2); BASO % 0.3 % (0.0-1.0); EOS % 0.1 % (0.0-3.0); HEMATOCRIT 44.1 % (42.0-52.0); LYMPH # 0.8 10^3/uL (1.5-5.0); LYMPH % 4.6 % (24.0-44.0); MEAN CORPUSCULAR HEMOGLOBIN 30.2 pg (27.0-33.0); MEAN CORPUSCULAR HGB CONC 33.8 g/dl (32.0-36.5); MEAN CORPUSCULAR VOLUME 89.5 fl (80.0-96.0); MONO # 1.3 10^3/uL (0.0-0.8); MONO % 7.4 % (2.0-8.0); NEUTROPHILS # 14.2 10^3/uL (1.5-8.5); NEUTROPHILS % 83.6 % (36.0-66.0); RED BLOOD COUNT 4.93 10^6/uL (4.30-6.10)
[2021-04-29 06:22] LABS: HEMOGLOBIN 14.9 g/dl (13.5-17.5); PLATELET COUNT, AUTOMATED 78 10^3/uL (150-450)
[2021-04-29] MEDS: HEPARIN SOD (PORCINE) 5000UNITS/ML 1ML VIAL/SYRINGE SC SCH (06:41)
[2021-04-29 06:58] LABS: ALBUMIN 2.5 GM/DL (3.2-5.2); ALT/SGPT 32 U/L (12-78); BILIRUBIN,TOTAL 3.2 MG/DL (0.2-1.0); BLOOD UREA NITROGEN 28 MG/DL (7-18); CARBON DIOXIDE LEVEL 23 MEQ/L (21-32); CHLORIDE LEVEL 116 MEQ/L (98-107); CREATININE FOR GFR 1.09 MG/DL (0.70-1.30); GLOMERULAR FILTRATION RATE > 60.0 (>42); GLUCOSE, FASTING 106 MG/DL (70-100); MAGNESIUM LEVEL 2.3 MG/DL (1.8-2.4); PHOSPHORUS LEVEL 1.4 MG/DL (2.5-4.9); POTASSIUM SERUM 4.7 MEQ/L (3.5-5.1); SODIUM LEVEL 145 MEQ/L (136-145); TOTAL PROTEIN 5.7 GM/DL (6.4-8.2)
[2021-04-29 08:00] VITALS: BP 145/69
[2021-04-29 08:30] VITALS: BP 139/76
[2021-04-29] MEDS: TIMOLOL MALEATE 0.5% OPHTH SOLN 5 ML OS SCH (08:30)
[2021-04-29] MEDS: CIPROFLOXACIN 400 MG in IV 1 EA IV SCH (08:30)
[2021-04-29] MEDS: prednisoLONE ACET 1% OPHTH SUSP 5ML OS SCH (08:30)
[2021-04-29] MEDS: ATORVASTATIN 20 MG TAB PO SCH (08:30)
[2021-04-29] MEDS: atenoloL 25 MG TAB PO SCH (08:30)
[2021-04-29] MEDS ORDERED: K-PHOS ORIGINAL (POT.ACID PHOSPHATE) 500MG TAB PO ONE (08:50)
[2021-04-29] MEDS ORDERED: CIPR500T39 PO (10:28)
[2021-04-29] MEDS ORDERED: METR-265 PO (10:28)
[2021-04-29] MEDS ORDERED: ELIQ5TAB PO (10:28)
[2021-04-29] MEDS ORDERED: ATEN25TA PO (10:34)
== END 2021-04-29 13:18 | disposition home or self-care (01) | DRG 445 ==
LOC: M ED 02:01 → M ED INP 11:10 → ENRESERV 16:30 → M PCU 19:09
PROVIDERS: ADMIT Internal Medicine; ATTEND Internal Medicine
DX: K81.0 Acute cholecystitis (principal); N17.9 Acute kidney failure, unspecified; I48.92 Unspecified atrial flutter; I10 Essential (primary) hypertension; E78.5 Hyperlipidemia, unspecified; R74.01 Elevation of levels of liver transaminase levels; Z20.822 Contact with and (suspected) exposure to COVID-19; Z79.899 Other long term (current) drug therapy; Z98.49 Cataract extraction status, unspecified eye

== ENCOUNTER → 2021-06-13 | Outpatient (CLI) | payer MEDICARE, OTHER ==
[~2021-06-13] MED LIST changes: +ATEN25TA PO; +CIPR500T39 PO; -D31000TA2 PO; +ELIQ5TAB PO; +METR-265 PO; +PREDOPD OS; +TIMO0.5S29 OS; +VITA100093 PO
== END ==
LOC: M LABSMTC 09:38
PROVIDERS: ATTEND Anesthesiology
DX: Z01.818 Encounter for other preprocedural examination (principal); Z11.52 Encounter for screening for COVID-19

== ENCOUNTER 2022-02-01 08:07 | Emergency (ER) | payer MEDICARE, OTHER ==
[~2022-02-01] VITALS: Ht 170.2 cm; Wt 80.7 kg
[2022-02-01] MEDS ORDERED: ONDANSETRON 4MG 2ML VIAL IV ONE (08:40)
[2022-02-01] MEDS ORDERED: NS 1,000 ML IV ONE (08:40)
[2022-02-01] MEDS ORDERED: MORPHINE 4 MG/ML 1ML VIAL/SYRINGE IV ONE ×2 (08:40→13:50)
[2022-02-01] MEDS ORDERED: GLYCERIN ADULT SUPP PR ONE (08:40)
[2022-02-01 09:00] LABS: BASO # 0.1 10^3/uL (0.0-0.2); BASO % 0.3 % (0.0-1.0); EOS % 0.1 % (0.0-3.0); HEMATOCRIT 53.5 % (42.0-52.0); HEMOGLOBIN 18.2 g/dl (13.5-17.5); LYMPH # 1.1 10^3/uL (1.5-5.0); LYMPH % 5.7 % (24.0-44.0); MEAN CORPUSCULAR HEMOGLOBIN 29.7 pg (27.0-33.0); MEAN CORPUSCULAR VOLUME 87.3 fl (80.0-96.0); MONO # 0.9 10^3/uL (0.0-0.8); MONO % 4.8 % (2.0-8.0); NEUTROPHILS # 16.2 10^3/uL (1.5-8.5); NEUTROPHILS % 88.3 % (36.0-66.0); RED BLOOD COUNT 6.13 10^6/uL (4.30-6.10); WHITE BLOOD COUNT 18.3 10^3/uL (4.0-10.0)
[2022-02-01 09:02] LABS: PLATELET COUNT, AUTOMATED 90 10^3/uL (150-450)
[2022-02-01] MEDS ORDERED: ISOVUE-370 76% 100ML VIAL As Ordered ONE (09:02)
[2022-02-01 09:33] LABS: ALBUMIN 3.8 GM/DL (3.2-5.2); BILIRUBIN,DIRECT 0.8 MG/DL (0.0-0.2); BILIRUBIN,TOTAL 4.6 MG/DL (0.2-1.0)
[2022-02-01] MEDS ORDERED: NS 1,420 ML in IV 1 EA IV ONE (09:50)
[2022-02-01] MEDS ORDERED: PIPERACILLIN/TAZOBACTAM SOD 4.5 GM in D5W MINI-BAG PLUS 50 ML IV ONE (09:50)
[2022-02-01 10:47] LABS: RSV AMPLIFICATION NEGATIVE (NEGATIVE)
[2022-02-01] MEDS ORDERED: CARVedilol 6.25 MG TAB PO ONE ×2 (16:30→16:35)
[2022-02-01] MEDS ORDERED: KETOROLAC 30 MG/ML 1ML VIAL IV ONE (17:15)
[2022-02-01 18:08] VITALS: BP 171/90
== END 2022-02-01 18:25 | disposition short-term general hospital (02) ==
LOC: M ED 08:07
DX: K59.00 Constipation, unspecified (principal); E86.0 Dehydration; I10 Essential (primary) hypertension; K85.10 Biliary acute pancreatitis without necrosis or infection; R65.10 Systemic inflammatory response syndrome (SIRS) of non-infectious origin without acute organ dysfunction; K80.20 Calculus of gallbladder without cholecystitis without obstruction; E78.5 Hyperlipidemia, unspecified; E55.9 Vitamin D deficiency, unspecified; Z86.19 Personal history of other infectious and parasitic diseases; Z79.899 Other long term (current) drug therapy
CPT/HCPCS: 74177; 74181; 76705; 80047; 80076; 83605; 83690; 85025; 85049; 85055; 87040; 87631; 93041; 96361; 96365; 96375; 99284; J1885; J2270; J2405; J2543; Q9967